=== PATIENT | female | born 1980 | race Caucasian/White ===

== ENCOUNTER 2018-09-05 14:09 | Emergency (ER) | payer OTHER ==
--- NOTE | 2018-09-05 14:26 | ED Physician Chart ---
ED Chief Complaint/HPI - Patient Information Date Seen:: 09/05/18 Time Seen:: 14:20 Chief Complaint:: Left ankle pain since yesterday morning. History of Present Illness:: Pt came in by private auto because of left ankle pain after she twisted it on uneven ground at about 1130 yesterday. No LOC. No other injury or pain. Last analgesic use with Tylenol at about 10 am today. Allergies:: NKA Vitals:: see Nurse Note. Historian:: Patient Family MD/PCP:: Dr. Au LMP:: Now. Review:: Nurse's Note Reviewed ED Review of Systems - Review of Systems General/Constitutional: No fever, No weight loss, No loss of appetite Skin: No skin lesions, No rash Head: No headache, No light-headedness Eyes: No loss of vision, No pain, No diplopia ENT: No earache, No nasal drainage, No sore throat Neck: No neck pain, No stiffness, No mass noted Cardio Vascular: No chest pain Pulmonary: No SOB, No cough, No wheezing GI: No nausea, No vomiting, No pain G/U: No dysuria, No frequency, No hematuria Gum Dipper: No vaginal discharge, No abnormal vaginal bleed Musculoskeletal: No back pain, Other (Left ankle pain.) Psychiatric: No prior psych history Hematopoietic: No bruising, No lymphadenopathy Allergic/Immuno: No urticaria, No angioedema Neurological: No syncope, No focal symptoms, No weakness, No paresthesia, No headache, No dizziness, No confusion ED Past Medical History - Past Medical History Past Medical History: No significant medical hx Family History: None Social History: Non Smoker, Alcohol (occasional), No Drug Use, Single, Employed , Other (lives with her children.) Employment:: ground maintenance. Surgical History: other (surgery related to ectopic about 20 y/a.) Psychiatricy History: None Medication: None Family Medical History - Family Member Mother History Unknown: Yes ED Physical Exam - Physical Examination General/Constitutional: Awake, Well-developed, well-nourished (female), Alert, No distress, Non-toxic appearing Other Gen/Cons comments:: Breathes comfortably, speaks clearly, and interacts appropriately. Head: Atraumatic Eyes: Lids, conjuctiva normal, PERRL, EOMI Skin: No rash, Well hydrated, No lymphadenopathy ENMT: External ears, nose nl, Nasal exam nl, Oropharynx nl Neck: Nontender, Full ROM w/o pain, No nuchal rigidity, No mass Respiratory: Nl effort/Exclusion, Clear to Auscultation, No Wheeze/Rhonchi/Rales Cardio Vascular: RRR, No murmur, gallop, rubs GI: No tenderness/rebounding/guarding, No organomegaly, Normal BS's, Nondistended, No mass/bruits Other Extremities comments:: Left lower extremity: Remarkable for tenderness at lateral aspect of left ankle with swelling. No erythema, ecchymosis, gross deformity or open wound. ROM not well assessed due to pain. No detectable motor/sensory/vascular deficit. Good distal pulse and capillary refill. Neuro/Psych: Alert/oriented (oriented x 3), No focal deficits ED Labs/Radiology/EKG Results - Radiology Results Results: L ankle X-ray: Based on my interpretation, mild soft tissue swelling. No acute fracture or subluxation. Official report is pending. ED Septic Shock - . Is Septic Shock (SBP<90, OR Lactate>4 mmol\L) present?: No ED Reassessment (Disposition) - Reassessment Reassessment:: 1615 Pt feels much better. L ankle x-ray findings have been reviewed with pt. Pt requests to go home now. Aftercare instructions have been given. Reassessment Condition:: Improved - Diagnosis Diagnosis:: Left ankle sprain. Stable. - Aftercare/Follow up Instructions Aftercare/Follow-Up Instructions:: Refer to Discharge Instructions Notes:: Wear left ankle splint as directed. No weight bearing activities on left ankle. Use crutches. Sprain care instructions given. May take Tylenol 500 mg tab one tab po q6h prn pain. May also take Motrin 200 mg tab 3 tabs by mouth every 8 hours as needed for pain , not to take first dose at least 6 hours after Toradol was given here. F/U with PCP Dr. Au in one day for recheck. Return to ER immediately if condition worsens or if any further questions/problems. Medication Prescribed:: None - Patient Disposition Discharge/Transfer:: Home Time:: 16:20 Condition at Disposition:: Stable, Improved
--- NOTE | 2018-09-06 10:23 | Diagnostic Imaging Report ---
Left ankle 3 views Indication: pain Comparison: none Findings: There is mild soft tissue swelling greatest along the lateral malleoli region. No evidence of an acute fracture or dislocation. Minimal degenerative changes are noted. Small plantar calcaneal spur is noted. Impression: Mild soft tissue swelling greatest along the lateral malleolus region. No evidence of an acute fracture. If there is concern for ligament injury MRI may be obtained for further assessment. In the setting of trauma, if clinical symptoms persist and there is continued concern for an occult fracture, follow up exams in 5-7 days is suggested.
== END 2018-09-05 16:27 | disposition home or self-care (01) ==
LOC: ER 14:09
DX: S93.402A Sprain of unspecified ligament of left ankle, initial encounter (principal); X50.1XXA Overexertion from prolonged static or awkward postures, initial encounter; Y93.89 Activity, other specified; Y92.89 Other specified places as the place of occurrence of the external cause; Y99.8 Other external cause status
CPT/HCPCS: 99283; 96372; 73610; J1885; Z7502